=== PATIENT | male | born 1980 | race Caucasian/White ===

== ENCOUNTER 2018-02-21 13:26 | Inpatient (IN) | payer BC, OTHER ==
[~2018-02-21] VITALS: Ht 175.3 cm; Wt 81.6 kg
[2018-02-21] MEDS ORDERED: AMLO10TA4 PO (18:04)
[2018-02-21] MEDS ORDERED: CLON1TAB PO (18:04)
[2018-02-21] MEDS ORDERED: LISI40TA4 PO (18:04)
[2018-02-21] MEDS ORDERED: ARIP5TAB10 PO (18:04)
[2018-02-21] MEDS ORDERED: GABA800T2 PO (18:04)
[2018-02-21] MEDS ORDERED: THIA100T74 PO (18:04)
[2018-02-21] MEDS ORDERED: FOLI1TAB16 PO (18:04)
[2018-02-21] MEDS ORDERED: INSU200I SQ (18:04)
[2018-02-21] MEDS ORDERED: PANT40TA2 PO (18:04)
[2018-02-21] MEDS ORDERED: DESV50TA PO (18:04)
[2018-02-21 18:10] VITALS: BP 145/89
--- NOTE | 2018-02-21 18:10 | NUR ---
Pre-admission Pre-admission assessment performed in the intake department of [facility]. Pt is A&O and ambulatory with a steady gait. He is mildly intoxicated and answers questions appropriately with slurred speech. He has slight difficulty forming sentences and is observed with facial flushing. Vital signs: B/P 145/89, HR 116, RR 18, O2 sat 93%, T 98.0, pain 0/10. Pt reports that he has been drinking vodka 375-750mL day for two weeks and intermittently prior to that. His last drink was 375mL today. Pt is stable and [facility].
--- NOTE | 2018-02-21 19:28 | NUR ---
ADMISSION NOTE Pt is a 37 y/o male who is being admitted for medically supervised withdrawal from ETOH and Benzodiazepines. Pt is mildly intoxicated and is currently beginning to experience withdrawal. Pt appears flushed and unshaven. Pt has an anxious mood and is restless. He is oriented to person, place, time, and purpose. Pts speech is slow and pressured, and he has avoidant eye contact. Pt states that withdrawal from these substances has typically included sweats, body aches, tremors, anxiety, agitation, and insomnia. Pt states the last time I went through withdrawals I became very depressed and withdrawn. Pt denies any withdrawal induced delirium, but states he once had a seizure in 2015 from withdrawing from ETOH. Pt states current substance use as follows: 1. Vodka: 375-750ml daily for the past 2 weeks. Pts last use was 400ml on 02/21/18 at 1200. Pt first began using when he was 16 y/o. 2. Klonopin: 1mg daily as prescribed by Psychiatrist for the past 2 months. Pts last use was on the night of 02/20/18. Pt first began taking Klonopin 2 months ago. Pt states that he seeking treatment today because his drinking has negatively affected several areas of his life. He states that since he started drinking it has caused his depression to become increasingly more severe, It has interfered with treatment and my ability to overcome it. He also states that it has caused him problems at work, I recently have had attendance issues at work and had to meet with HR quite a few times. His biggest reason for seeking treatment today is his girlfriend. My girlfriend told me that she would not see me again until I was sober. She is not an addict, but she stopped drinking completely in support of me. I love her and want to be better for her. Pt states that he has issues arising from his childhood that he trying to deal with. I am trying to get help to deal with my childhood, but alcohol has gotten in the way of that and any progress I make. Pt states that he is ready to totally focus on recover. I just want to clean up my past and get back on track. He would like to continue residential treatment after detox. Pt states he has a sponsor and used to go to AA meetings, but he is willing to go now. He is also willing to try other types of recovery groups. Pt states that his family is also a good support system for him. Pts V/S are: T:98.0, P:116, RR:18, SPO2:94%, and BP:145/89. Pt denies any pain. Pulse is strong and regular, but tachy. Respirations are unlabored and even. Skin is intact. Pt follows a carb controlled diet at home. Pt has NKA/NKDA. He smokes about 20 cigarettes per day. Pt cant recall the name of his PCP. His psychiatrists are Dr. De Anda and Cyril Diamond. His psychotherapist is Magalis Ortega. Pt has a past medical h/o Diabetes type 2 and is currently taking Lantis and Humalog. Pt also has HTN for which he takes Lisinopril and Norvasc. Pt has a mental health h/o depression and anxiety, and takes Pristiq, Abilify, Gabapentine, and Klonopin. Pt educated on plan of care including detox, group and individual therapy, and discharge planning. Pt was encouraged to be open and honest to keep open the lines of communication. He was also given support for his choice in recovery.
[2018-02-21 19:35] LABS: *AMPHETAMINE, URINE NEGATIVE (NEGATIVE); *BARBITURATE, URINE NEGATIVE (NEGATIVE); *CANNABINOID, URINE NEGATIVE (NEGATIVE); *COCCAINE, URINE NEGATIVE (NEGATIVE); *OPIATE, URINE NEGATIVE (NEGATIVE); *PHENCYCLIDINE SCREEN,URINE NEGATIVE (NEGATIVE)
[2018-02-21 20:09] VITALS: BP 147/99
[2018-02-21] MEDS ORDERED: LOPERAMIDE HCL 2 MG CAPSULE PO PRN ×2 (21:00)
[2018-02-21] MEDS ORDERED: DIAZEPAM 5 MG TABLET PO PRN (21:00)
[2018-02-21] MEDS ORDERED: MAG HYDROX/AL HYDROX/SIMETH 30 ML LIQUID UDC PO PRN (21:00)
[2018-02-21] MEDS ORDERED: LORAZEPAM 2 MG/1 ML VIAL IM PRN (21:00)
[2018-02-21] MEDS ORDERED: ONDANSETRON ODT 4 MG TAB.RAPDIS SL PRN (21:00)
[2018-02-21] MEDS ORDERED: MAGNESIUM HYDROXIDE 30 ML LIQUID UDC PO PRN (21:00)
[2018-02-21] MEDS ORDERED: HYDROXYZINE PAMOATE 25 MG CAPSULE PO PRN (21:00)
[2018-02-21] MEDS ORDERED: DIAZEPAM 10 MG TABLET PO PRN (21:00)
[2018-02-21] MEDS ORDERED: IBUPROFEN 600 MG TABLET PO PRN (21:00)
[2018-02-21] MEDS ORDERED: INSULIN GLARGINE,HUM 300 UNITS/3 ML CARTRIDGE SQ SCH (21:00)
[2018-02-21] MEDS ORDERED: ONDANSETRON 4 MG/2 ML VIAL IM PRN (21:00)
[2018-02-21] MEDS ORDERED: THIAMINE HCL 200 MG/2 ML VIAL IM ONE (21:20)
[2018-02-21] MEDS ORDERED: DEXTROSE 50% 50 ML DISP.SYRIN IV PRN (21:30)
[2018-02-21 21:43] LABS: BASOPHILS # (AUTO) 0.1 K/uL (0.0-8.0); BASOPHILS % (AUTO) 0.6 % (0.0-2.0); EOSINOPHILS % (AUTO) 0.5 % (0.0-7.0); HEMATOCRIT 49.3 % (36.7-47.1); HEMOGLOBIN 17.3 g/dL (12.5-16.3); LYMPHOCYTES # (AUTO) 2.7 K/uL (20.0-40.0); LYMPHOCYTES % (AUTO) 31.8 % (20.5-51.5); MEAN CORPUSCULAR HEMOGLOBIN 33.2 uug (23.8-33.4); MEAN CORPUSCULAR HGB CONC 35 g/dL (32.5-36.3); MEAN CORPUSCULAR VOLUME 94.6 fL (73.0-96.2); MONOCYTES # (AUTO) 0.5 K/uL (2.0-10.0); NEUTROPHILS # (AUTO) 5.2 K/uL (1.8-8.9); NEUTROPHILS % (AUTO) 61.1 % (38.5-71.5); PLATELET COUNT (AUTO) 160 K/uL (152-348); RED BLOOD CELL COUNT(AUTO) 5.22 MIL/uL (4.06-5.63); WHITE BLOOD COUNT (AUTO) 8.6 K/uL (3.6-10.2)
[2018-02-21] MEDS: BLOOD SUGAR DIAGNOSTIC 1 EACH STRIP VI SCH (21:58)
--- NOTE | 2018-02-21 22:02 | NUR ---
CIWA ASSESSMENT CIWA 16. Pt is presenting w/ anxiety, flushed skin, tremors, and agitation. V/S: T:98.7. P:120, RR:16, SPO2:95, BP:147/99.
[2018-02-21] MEDS ORDERED: INSULIN GLARGINE,HUM 300 UNITS/3 ML CARTRIDGE SQ ONE (22:08)
[2018-02-21] MEDS ORDERED: INSULIN REGULAR, HUMAN 300 UNIT/3 ML VIAL ONE (22:08)
[2018-02-21 22:15] LABS: THYROID STIMULATING HORMONE 1.461 mIU/mL (0.358-3.740)
[2018-02-21] MEDS: diphenhydrAMINE 50 MG CAPSULE PO PRN (22:16)
[2018-02-21] MEDS: DIAZEPAM 10 MG TABLET PO PRN (22:16)
[2018-02-21] MEDS: CLONIDINE HCL 0.1 MG TABLET PO PRN (22:16)
--- NOTE | 2018-02-21 22:16 | NUR ---
PRN VALIUM, CLONIDINE, AND BENADRYL ADMINISTRATION Valium 20mg, Clonidine 0.1mg, and Benadryl 50mg given for CIWA 16, anxiety, and sleep. Will reassess pt in 1 hr.
[2018-02-21 22:18] LABS: BILIRUBIN,TOTAL 0.9 mg/dL (0.2-1.0); CREATININE 0.7 mg/dL (0.6-1.3); MAGNESIUM 1.7 mg/dL (1.8-2.4); TOTAL PROTEIN, SERUM 8.2 g/dL (6.4-8.2)
[2018-02-21] MEDS: INSULIN REGULAR, HUMAN 300 UNIT/3 ML VIAL SQ PRN (22:24)
--- NOTE | 2018-02-21 23:16 | NUR ---
PRN VALIUM, BENADRYL, AND CLONIDINE REASSESSMENT Pt is in bed w/ his eyes closed. Pt's respirations are unlabored and even.
--- NOTE | 2018-02-22 00:09 | NUR ---
CIWA DEFERRED Pt is in bed w/ his eyes closed. Pt's respirations are unlabored and even.
--- NOTE | 2018-02-22 04:10 | NUR ---
CIWA DEFERRED. V/S REFUSED Pt is in bed w/ his eyes clsoed. Pt's respirations are unlabored and even.
--- NOTE | 2018-02-22 04:30 | NUR ---
CIWA ASSESSMENT CIWA 16. Pt presenting w/ anxiety, agitation, tremors, and flsuhing. V/S: T:97.6, P:101, RR:16, SPO2:97, BP:138/89.
[2018-02-22] MEDS: DIAZEPAM 10 MG TABLET PO PRN (04:34)
--- NOTE | 2018-02-22 04:34 | NUR ---
PRN VALIUM ADMINISTRATION Valium 20mg given for CIWA 16. Will reassess pt in 1 hr.
--- NOTE | 2018-02-22 07:11 | NUR ---
END OF SHIFT NOTE Endorsed pt to oncoming nurse. Pt is a 37 y/o male A/O to person, place, time, and purpose. Pt was admitted for medically supervised withdrawal from ETOH and Benzodiazepines. Pt has a medcial h/o DM II and HTN, and mental health h/o Depression and Anxiety. Pt presented w/ anxiety, agitation, sweats, flushing, and tremors. Pt denies any S/I or H/I. PRN Valium 20mg x2, Clonidine 0.1mg, and Benadryl 50mg were given and noted effective. Pts fluid intake was 1355ml and he slept for 4hrs. Last CIWA 16 @ 0430. Call light is within reach.
--- NOTE | 2018-02-22 07:15 | NUR ---
Star of Shift Note Pt. is a 37 y/o male admitted for the medically managed withdrawal from ETOH and Benzodiazepines. Pt. was placed on a 4 day Valium taper to which is set to begin today to help manage his withdrawal symptoms. Pt. has a medical history of DM and HTN. Endorse from previous shift pt. presented with anxiety, flushed facial skin, agitation, diaphoresis, and tremors. Pt. given PRN clonidine, valium, and Benadryl to help manage withdrawal symptoms. Received pt. in room. Pt. laying in bed with eyes closed, no signs of distress noted. Safety measures in place. Will continue to monitor pt.s behavior for safety
[2018-02-22 08:00] VITALS: BP 132/84
--- NOTE | 2018-02-22 08:00 | NUR ---
CIWA Assessment CIWA of 12 at this time. Pt. in room presenting with anxiety, restlessness, diaphoresis, flushed facial skin, fine hand tremors and agitation. Pt. educated on medication regiment for the day. Will give medications as ordered. Will continue to monitor pt.'s behavior for safety.
[2018-02-22] MEDS: BLOOD SUGAR DIAGNOSTIC 1 EACH STRIP VI SCH ×4 (08:11→20:56)
[2018-02-22] MEDS: CLONIDINE HCL 0.1 MG TABLET PO PRN (08:18)
[2018-02-22] MEDS: FOLIC ACID 1 MG TABLET PO SCH (08:18)
[2018-02-22] MEDS: MULTIVITAMINS,THERAPEUTIC TABLET PO SCH (08:18)
[2018-02-22] MEDS: DIAZEPAM 10 MG TABLET PO SCH ×3 (08:18→20:49)
[2018-02-22] MEDS: THIAMINE HCL 100 MG TABLET PO SCH (08:18)
--- NOTE | 2018-02-22 08:18 | NUR ---
PRN Medication Pt. in room complaining of increased anxiety at this time. Pt. presents with a worried expression, and flushed facial skin. PRN Clonidine, and Vistaril given at this time to help manage withdrawal symptoms. Will continue to monitor pt.'s behavior for safety and medication effectiveness.
[2018-02-22] MEDS ORDERED: 4 DAY TAPER VALIUM-SERENITY PROTOCOL PO PRN (09:00)
[2018-02-22] MEDS ORDERED: TUBERCULIN,PURIF.PROT.DERIV. 5 TU/0.1 ML TEST ID ONE (09:00)
--- NOTE | 2018-02-22 09:00 | NUR ---
PRN Re-Assessment Pt. laying in bed watching television. Pt. reports a decrease in anxiety and states "I was able to take a little nap I feel a little better thank you." Medication effective. Will continue to monitor pt.'s behavior for safety.
--- NOTE | 2018-02-22 09:43 | NUR ---
Therapist prompted client to attend group therapy.
[2018-02-22] MEDS ORDERED: POTASSIUM CHLORIDE 20 MEQ TAB.PRT.SR PO ONE (11:00)
[2018-02-22] MEDS ORDERED: MAGNESIUM OXIDE 400 MG TABLET PO ONE (11:00)
[2018-02-22 12:00] VITALS: BP 144/90
--- NOTE | 2018-02-22 12:00 | NUR ---
CIWA Assessment CIWA of 12 at this time. Pt. medication compliant. Will continue to give medications as ordered. Will continue to monitor for safety.
[2018-02-22] MEDS: INSULIN REGULAR, HUMAN 300 UNIT/3 ML VIAL SQ PRN ×3 (12:34→21:00)
[2018-02-22] MEDS ORDERED: Medication Not On Formulary EA (Lisinopril 40 MG) PO SCH (13:45)
--- NOTE | 2018-02-22 14:40 | NUR ---
Therapist prompted client to attend group therapy sessions and client agreed to do so.
[2018-02-22] MEDS: LISINOPRIL 20 MG TABLET PO SCH (15:15)
[2018-02-22] MEDS: AMLODIPINE 10 MG TABLET PO SCH (15:15)
[2018-02-22] MEDS: GABAPENTIN 400 MG CAPSULE PO SCH ×2 (15:15→17:30)
[2018-02-22 16:00] VITALS: BP 132/93
--- NOTE | 2018-02-22 16:00 | NUR ---
CIWA Assessment CIWA of 12 at this time. Pt. medication compliant. Will continue to give medications as ordered. Will continue to monitor for safety.
--- NOTE | 2018-02-22 19:28 | NUR ---
End of Shift note Pt. is a 37 y/o male admitted for the medically managed withdrawal from ETOH and Benzodiazepines. Pt. was placed on a 4 day Valium taper to which is set to begin today to help manage his withdrawal symptoms. Throughout shift pt. presented with anxiety, flushed facial skin, agitation, diaphoresis, and tremors. Pt. given PRN clonidine, and vistaril to help manage withdrawal symptoms. Safety measures in place. Will endorse pt.'s care to oncoming shift.
--- NOTE | 2018-02-22 19:29 | NUR ---
Start of shift note Received report from day shift nurse. Pt is a 37 yo male, A+Ox4, presenting to [facility] for medically supervised ETOH/Benzo withdrawal. Pt noted with flushed face, restlessness, anxiety, and agitation. Pt has HX of DMII, HTN, Depression, and anxiety which will be monitored during shift. Pt is on 4 day Valium taper, tolerated well. Respirations even and unlabored. Will continue to monitor.
[2018-02-22 20:10] VITALS: BP 146/96
--- NOTE | 2018-02-22 20:10 | NUR ---
CIWA Assessment CIWA: 10. Pt noted with fine tremors, sweat on brow, anxiety, and agitation. Respirations even and unlabored. Will continue to monitor.
[2018-02-22] MEDS: INSULIN GLARGINE,HUM 300 UNITS/3 ML CARTRIDGE SQ SCH (20:59)
[2018-02-22] MEDS ORDERED: TRAZODONE 50 MG TABLET PO ONE (22:30)
--- NOTE | 2018-02-22 23:58 | NUR ---
One time Trazodone Pt c/o inability to sleep. MD provided on time Trazodone dose of 50mg. Medication given and tolerated well. Will reassess within 1 HR. Will continue to monitor.
[2018-02-23 00:50] VITALS: BP 138/87
--- NOTE | 2018-02-23 00:50 | NUR ---
CIWA Assessment CIWA: 9. Pt noted with fine tremors, sweat on brow, anxiety and agitation. Respirations even and unlabored. Will continue to monitor.
[2018-02-23] MEDS: diphenhydrAMINE 50 MG CAPSULE PO PRN (00:52)
--- NOTE | 2018-02-23 00:52 | NUR ---
PRN Benadryl administration and PRN Trazodone Reassessment Pt report PRN Trazodone as ineffective. Pt requested for PRN Benadryl for inability to sleep. Medication given and tolerated well. Will reassess within 1 HR. Will continue to monitor.
--- NOTE | 2018-02-23 01:50 | NUR ---
PRN Benadryl Reassessment Medication effective. Pt is resting well in bed. No s/s of ASE noted at this time. Respirations even and unlabored. Will continue to monitor.
--- NOTE | 2018-02-23 04:48 | NUR ---
V/S refused and CIWA Assessment deferred for sleep. Respirations even and unlabored. Will continue to monitor.
--- NOTE | 2018-02-23 06:50 | NUR ---
End of shift note Pt was continuously noted with restlessness, anxiety, and agitation. Pt remained in room for majority of shift except to go smoke on smoking patio, to get food from kitchen, and to interact with other patients in recreational room. Pt remains cooperative and compliant with all aspects of treatment. Pt was given One time dose of Trazodone @2359 and PRN Benadryl @0052. Pt remains on 4 day Valium taper, tolerated well. Pt slept for a total of 6 HRS. Last CIWA: 9 @0050. Respirations even and unlabored. Will endorse to day shift nurse.
--- NOTE | 2018-02-23 07:30 | NUR ---
START OF SHIFT pt 37 y/o male admitted for medically supervised withdrawal of etoh. Pt received in room awake watching television. Pt alert and oriented to name, place, and time. Perrla. Respirations even and unlabored. Appears disheveled. Clothes scattered throughout the room. Encouraged to maintain hygiene. Anxious and restless. Pacing. Pressured speech. Complaints of generalized discomfort. It was reported that pt slept for 6 hours last night. Last ciwa=9 @0000. Pt is on a 4 day valium taper and is on day 2. Bed on lowest position with side rails x2 up for safety. Call light within reach.
[2018-02-23] MEDS: BLOOD SUGAR DIAGNOSTIC 1 EACH STRIP VI SCH ×4 (07:37→21:16)
[2018-02-23 08:00] VITALS: BP 149/105
--- NOTE | 2018-02-23 08:00 | NUR ---
CIWA ASSESSMENT ciwa=10. Anxious and restless. Pressured speech noted. Bilateral hand tremors noted. Easily irritable. Complaints of generalized discomfort.
[2018-02-23] MEDS: THIAMINE HCL 100 MG TABLET PO SCH (08:26)
[2018-02-23] MEDS: DIAZEPAM 5 MG TABLET PO SCH ×4 (08:26→20:35)
[2018-02-23] MEDS: LISINOPRIL 20 MG TABLET PO SCH (08:27)
[2018-02-23] MEDS: AMLODIPINE 10 MG TABLET PO SCH (08:28)
[2018-02-23] MEDS: MULTIVITAMINS,THERAPEUTIC TABLET PO SCH (08:28)
[2018-02-23] MEDS: GABAPENTIN 400 MG CAPSULE PO SCH ×3 (08:28→16:38)
[2018-02-23] MEDS: FOLIC ACID 1 MG TABLET PO SCH (08:28)
[2018-02-23 12:00] VITALS: BP 139/105
--- NOTE | 2018-02-23 12:00 | NUR ---
CIWA ASSESSMENT ciwa=10. Bilateral hand tremors noted. Anxious and restless. Fidgety. Pacing. Flushed face. Pressured speech. Complaints of generalized discomfort.
[2018-02-23] MEDS: CLONIDINE HCL 0.1 MG TABLET PO PRN (12:12)
--- NOTE | 2018-02-23 12:12 | NUR ---
PRN CATAPRES DU=[id number]/105. Catapres po prn per MD order given and tolerated well.
[2018-02-23] MEDS: INSULIN REGULAR, HUMAN 300 UNIT/3 ML VIAL SQ PRN ×3 (12:16→21:25)
--- NOTE | 2018-02-23 13:12 | NUR ---
PRN CATAPRES EVAL me=[id number]/80.
[2018-02-23] MEDS ORDERED: Medication Not On Formulary EA (Desvenlafaxine Succinate (Pristiq) 50 MG) PO SCH (14:15)
--- NOTE | 2018-02-23 14:18 | NUR ---
Therapist prompted client to attend all group therapy sessions.
[2018-02-23 14:40] LABS: HEPATITIS B SURFACE AG Negative (Negative)
[2018-02-23] MEDS: ARIPIPRAZOLE 5 MG TABLET PO SCH (15:25)
[2018-02-23 16:00] VITALS: BP 143/98
--- NOTE | 2018-02-23 16:00 | NUR ---
CIWA ASSESSMENT ciwa=10. Anxious and restless. Fidgety. Pacing. Pressured speech noted. Bilateral hand tremors noted. Easily irritable. Complaints of generalized discomfort.
[2018-02-23 16:03] LABS: CREATININE 0.9 mg/dL (0.6-1.3); MAGNESIUM 1.7 mg/dL (1.8-2.4); POTASSIUM 4.8 mmol/L (3.5-5.1)
[2018-02-23 16:29] LABS: BILIRUBIN,TOTAL 1.7 mg/dL (0.2-1.0); TOTAL PROTEIN, SERUM 7.6 g/dL (6.4-8.2)
[2018-02-23] MEDS: [UNRECOGNIZED DRUG - OTHER] PO SCH (18:07)
--- NOTE | 2018-02-23 18:42 | NUR ---
END OF SHIFT Pt 37 y/o male admitted for medically supervised withdrawal of etoh. Pt alert and oriented to name, place, and time. Perrla. Respirations even and unlabored. Appears disheveled and unkempt. Food wrappings scattered throughout the room. Encouraged to maintain hygiene. Anxious and restless. Fidgety. Pressured speech. Complaints of generalized discomfort. Isolative with minimal peer interaction. Attended group activity. Pt is on a 4 day valium taper and is on day 2. Last ciwa=10 @1600. Bed on lowest position with side rails x2 up for safety. Call light within reach.
--- NOTE | 2018-02-23 19:11 | NUR ---
Start of shift note Received report from day shift nurse. Pt is a 37 yo male, A+Ox4, presenting to [facility] for medically supervised ETOH/Benzo withdrawal. Pt noted with anxiety, restlessness, and agitation. Pt has HX of DMII, HTN, anxiety, and depression which will be monitored during shift. Pt is on 4 day Valium taper, tolerated well. Respirations even and unlabored. Will continue to monitor.
[2018-02-23 20:10] VITALS: BP 122/95
--- NOTE | 2018-02-23 20:10 | NUR ---
CIWA Assessment CIWA: 10. Pt noted with fine tremors, sweat on brow, anxiety, and agitation. Respirations even and unlabored. Will continue to monitor.
[2018-02-23] MEDS: INSULIN GLARGINE,HUM 300 UNITS/3 ML CARTRIDGE SQ SCH (21:24)
[2018-02-23] MEDS: TRAZODONE 100 MG TABLET PO SCH (23:08)
--- NOTE | 2018-02-24 00:29 | NUR ---
V/S refused and CIWA Assessment deferred for sleep. Respirations even and unlabored. Will continue to monitor.
--- NOTE | 2018-02-24 04:46 | NUR ---
V/S refused and CIWA Assessment deferred for sleep. Respirations even and unlabored. Will continue to monitor.
--- NOTE | 2018-02-24 07:00 | NUR ---
End of shift note Pt was continuously noted with restlessness, anxiety and agitation. Pt remained in room for majority of shift except to go smoke on smoking patio, to get food from kitchen, and to interact with other patients in recreational room. Pt remained cooperative and compliant with all aspects of treatment. Pt was not given any PRN medications during shift. Pt remains on 4 day Valium taper, tolerated well. Pt slept for a total of 8 HRS. Last CIWA: 10 @2009. Respirations even and unlabored. Will endorse to day shift nurse.
[2018-02-24 08:00] VITALS: BP 152/103
--- NOTE | 2018-02-24 08:00 | NUR ---
START OF SHIFT Pt 37 y/o male admitted for medically supervised withdrawal of etoh. Pt received in room on bed with eyes closed resting. Pt alert and oriented to name, place, and time. Perrla. Respirations even and unlabored. Appears disheveled and unkempt. Clothes scattered throughout the room. Encouraged to maintain hygiene. Anxious and restless. Pressured speech. Fidgety. Face is slightly flushed. Bilateral hand tremors. Complaints of generalized discomfort. ciwa=10 @ 0800. It was reported that pt slept for 8 hours last night. Last ciwa=10 @1999 reported. Pt is on a 4 day valium taper and is on day 3. Bed on lowest position with side rails x2 up for safety. Call light within reach.
[2018-02-24] MEDS: BLOOD SUGAR DIAGNOSTIC 1 EACH STRIP VI SCH ×4 (08:08→20:55)
[2018-02-24] MEDS: INSULIN REGULAR, HUMAN 300 UNIT/3 ML VIAL SQ PRN ×4 (08:12→21:05)
[2018-02-24] MEDS: [UNRECOGNIZED DRUG - OTHER] PO SCH (08:51)
[2018-02-24] MEDS: AMLODIPINE 10 MG TABLET PO SCH (08:52)
[2018-02-24] MEDS: GABAPENTIN 400 MG CAPSULE PO SCH ×3 (08:52→16:42)
[2018-02-24] MEDS: LISINOPRIL 20 MG TABLET PO SCH (08:52)
[2018-02-24] MEDS: FOLIC ACID 1 MG TABLET PO SCH (08:53)
[2018-02-24] MEDS: ARIPIPRAZOLE 5 MG TABLET PO SCH (08:53)
[2018-02-24] MEDS: THIAMINE HCL 100 MG TABLET PO SCH (08:53)
[2018-02-24] MEDS: MULTIVITAMINS,THERAPEUTIC TABLET PO SCH (08:53)
[2018-02-24] MEDS: DIAZEPAM 5 MG TABLET PO SCH ×3 (08:53→20:54)
[2018-02-24 12:00] VITALS: BP 144/95
--- NOTE | 2018-02-24 12:00 | NUR ---
CIWA ASSESSMENT ciwa=10. Bilateral hand tremors. Intermittent perspiration. Complaints of generalized discomfort. Anxious and restless. Pacing.
[2018-02-24] MEDS: CLONIDINE HCL 0.1 MG TABLET PO PRN (12:10)
--- NOTE | 2018-02-24 12:20 | NUR ---
PRN CATAPRES Pt anxious and restless. Catapres po prn per MD order given and tolerated well.
--- NOTE | 2018-02-24 13:20 | NUR ---
PRN CATAPRES EVAL Pt states medication effective.
[2018-02-24 16:00] VITALS: BP 134/91
--- NOTE | 2018-02-24 16:00 | NUR ---
CIWA ASSESSMENT ciwa=10. anxious and restless. Pressured speech noted. Bilateral hand tremors noted. Irritable. Pacing. Intermittent perspiration.
--- NOTE | 2018-02-24 18:49 | NUR ---
END OF SHIFT Pt 37 y/o male admitted for medically supervised withdrawal of etoh. Pt alert and oriented to name, place, and time. Perrla. Respirations even and unlabored. Appears disheveled and unkempt. Empty drink bottles and clothes scattered throughout the room. Encouraged to maintain hygiene. Anxious and restless. Fidgety. Pressured speech. Pacing. Bilateral hand tremors. Complaints of generalized discomfort. Minimal peer interaction. Attended group activity. Pt is on a 4 day valium taper and is on day 3. Last ciwa=10 @1600. Bed on lowest position with side rails x2 up for safety. Call light within reach.
--- NOTE | 2018-02-24 19:11 | NUR ---
Start of shift note Received report from day shift nurse. Pt is a 37 yo male, A+Ox4, presenting to [facility] for medically supervised ETOH/Benzo withdrawal. Pt noted with restlessness, anxiety, and agitation. Pt has HX of DMII, HTN, Depression, seizure and anxiety which will be monitored during shift. Pt is on 4 day Valium taper, tolerated well. Respirations even and unlabored. Will continue to monitor.
[2018-02-24 20:10] VITALS: BP 136/88
--- NOTE | 2018-02-24 20:10 | NUR ---
CIWA Assessment CIWA: 9. Pt noted with fine tremors, sweat on brow, anxiety, and agitation. Respirations even and unlabored. Will continue to monitor.
[2018-02-24] MEDS: INSULIN GLARGINE,HUM 300 UNITS/3 ML CARTRIDGE SQ SCH (21:04)
[2018-02-24] MEDS: TRAZODONE 100 MG TABLET PO SCH (23:26)
--- NOTE | 2018-02-25 | NUR ---
CIWA assessment Patient reports anxiety, restlessness, face flushed and hot and cold sweats. CIWA 10 Addendum: 02/26/18 at 0339 by CATALINO FOSTER LVN Error : date and time charting
--- NOTE | 2018-02-25 00:55 | NUR ---
V/S refused and CIWA assessment deferred for sleep. Respirations even and unlabored. Will continue to monitor.
--- NOTE | 2018-02-25 04:40 | NUR ---
V/S refused and CIWA assessment deferred for sleep. Respirations even and unlabored. Will continue to monitor.
--- NOTE | 2018-02-25 07:00 | NUR ---
End of shift note Pt was continuously noted with restlessness, anxiety, and agitation. Pt remained in room for majority of shift except to get food from kitchen, to go smoke on smoking patio, and to interact with other patients in recreational room. Pt remained cooperative and compliant with all aspects of treatment. Pt was not given any PRN medications during shift. Pt remains on 4 day Valium taper, tolerated well. Pt slept for a total of 6 HRS. Last CIWA: 9 @2009. Respirations even and unlabored. Will endorse to day shift nurse.
[2018-02-25] MEDS: BLOOD SUGAR DIAGNOSTIC 1 EACH STRIP VI SCH ×4 (07:41→22:27)
--- NOTE | 2018-02-25 07:46 | NUR ---
Start of shift note; Received report from night nurse. Patient is a 37 year old male admitted on 02/21/18 for ETOH/ Benzodiazepine withdrawal. Patient was placed on a 4 day Valium taper, tolerating well. Patient is diagnosed with DM type 2, current Blood sugar is 98 mg/dl AC accu check, no insulin needed at this time. Patient is AOX4, presented with anxiety, flushed face noted, complaining of generalized body aches, muscle aches, intermittent sweats noted. Patient slept for 8 hours. Patient's last CIWA score is 9 per endorsement. All safety measures secured. Will continue to monitor patient.
[2018-02-25 08:00] VITALS: BP 125/89
--- NOTE | 2018-02-25 08:00 | NUR ---
CIWA Assessment, Blood sugar check; Patient appears older than age stated, flushed face noted. Patient's current CIWA score is 11 manifested by poor eye contact, anxious, easily overwhelmed,guarded, patient is complaining of muscle aches, generalized discomfort, fatigue. Patient AC Blood sugar is 98mg/dl, no insulin needed. Will continue to monitor patient.
[2018-02-25] MEDS: LISINOPRIL 20 MG TABLET PO SCH (09:00)
[2018-02-25] MEDS: [UNRECOGNIZED DRUG - OTHER] PO SCH (09:00)
[2018-02-25] MEDS: ARIPIPRAZOLE 5 MG TABLET PO SCH (09:00)
[2018-02-25] MEDS: THIAMINE HCL 100 MG TABLET PO SCH (09:00)
[2018-02-25] MEDS: FOLIC ACID 1 MG TABLET PO SCH (09:00)
[2018-02-25] MEDS: GABAPENTIN 400 MG CAPSULE PO SCH ×3 (09:00→16:48)
[2018-02-25] MEDS: MULTIVITAMINS,THERAPEUTIC TABLET PO SCH (09:00)
[2018-02-25] MEDS: AMLODIPINE 10 MG TABLET PO SCH (09:00)
[2018-02-25] MEDS: DIAZEPAM 5 MG TABLET PO SCH ×2 (09:00→22:24)
[2018-02-25 12:00] VITALS: BP 126/88
--- NOTE | 2018-02-25 12:00 | NUR ---
CIWA Assessment, Blood sugar check; Patient appears older than age stated, flushed face noted. Patient's current CIWA score continues to be 11 manifested by poor eye contact, anxious, easily overwhelmed,guarded, patient is complaining of muscle aches, generalized discomfort, fatigue. Patient AC Blood sugar is 215mg/dl, 4 units of Insulin given per protocol. Will continue to monitor patient.
[2018-02-25] MEDS: INSULIN REGULAR, HUMAN 300 UNIT/3 ML VIAL SQ PRN ×3 (12:08→22:25)
[2018-02-25 16:00] VITALS: BP 120/81
--- NOTE | 2018-02-25 17:00 | NUR ---
CIWA Assessment, Blood sugar check; Patient appears older than age stated, flushed face noted. Patient's current CIWA score is 10 manifested by poor eye contact, anxious, easily overwhelmed,guarded, patient is complaining of muscle aches, generalized discomfort, fatigue. Patient AC Blood sugar is 217 mg/dl, 4 units of Insulin given per protocol. Will continue to monitor patient.
--- NOTE | 2018-02-25 18:19 | NUR ---
End of shift note; Patient is AXO4, presented with anxiety, poor eye contact, easily overwhelmed,guarded, patient is complaining of muscle aches, generalized discomfort, fatigue. Patient remained compliant with treatment plan and medication regime. Patient participated in group activities and therapies. Patient's last CIWA score is 10 at 1600. Medications were effective in reducing withdrawal symptoms. PRN insulin given per sliding scale protocol. All safety measures secured. Met all needs.
--- NOTE | 2018-02-25 19:30 | NUR ---
Start of shift note Received report from day shift nurse. Patient is a 37 year old male admitted for ETOH and Benzodiazepine withdrawal. Patient is on 4th day of his 4 day Valium taper. Patient is diagnosed with DM type II. Last blood sugar was 217 and was given 4 units of regular insulin. Patient did not require PRN medication . Last CIWA 10. Patient alert and oriented x 4. Patient presents with flat affect, flushed face, anxious and restless. Safety measures in place. Call light within reach. Will continue to monitor.
[2018-02-25 20:00] VITALS: BP 135/93
--- NOTE | 2018-02-25 20:00 | NUR ---
CIWA assessment Patient reports anxiety, restlessness, face flushed and hot and cold sweats. CIWA 10
[2018-02-25] MEDS ORDERED: INSULIN GLARGINE,HUM 300 UNITS/3 ML CARTRIDGE SQ ONE (22:16)
[2018-02-25] MEDS: TRAZODONE 100 MG TABLET PO SCH (22:24)
[2018-02-25] MEDS: INSULIN GLARGINE,HUM 300 UNITS/3 ML CARTRIDGE SQ SCH (22:27)
[2018-02-26] VITALS: BP 128/86
--- NOTE | 2018-02-26 | NUR ---
CIWA deferred Patient lying in bed with eyes closed. Respiration even and unlabored. Will continue to monitor
[2018-02-26 04:00] VITALS: BP 130/78
--- NOTE | 2018-02-26 04:00 | NUR ---
CIWA deferred Patient lying in bed with eyes closed. Respiration even and unlabored. Will continue to monitor
--- NOTE | 2018-02-26 07:26 | NUR ---
End of shift note Patient slept 6 hours. Fluid intake 1,446 ml. Voided x 3 . No BM. Monitored patient throughout shift. Patient is diagnosed with DM type II. Last blood sugar was 336 and was given 8 units of regular insulin. Lantus given as ordered. Patient did not require PRN medication . Patient alert and oriented x 4. Patient presented with flat affect, flushed face, anxiety and restlessness. Scheduled medication and taper , tolerated well and no adverse reaction. Patient states that medication are effective in controlling his withdrawal symptoms. Encouraged fluids. Safety measures in place. Call light within reach. Will continue to monitor. Last CIWA 10
--- NOTE | 2018-02-26 07:35 | NUR ---
START OF SHIFT Endorse rcvd from ongoing nurse, client is in room, a/o x 4, he presents with anxious mood, flushed facial face, tremors, and restlessness. Last CIWA 10 @ 2200. Client completed 4 day Valium taper. Client is schedule for discharge tomorrow am to [facility] for continuity of treatment. PRN Insulin Regular 8 units, for blood sugar 336. Client slept 6 hrs. Bed in lowest/locked position. Client refused side rails x 2 up/padded, stating, "Yeah, I know the risk in case I have a seizure, but I don't want them up." Call light within reach. Will continue to monitor.
--- NOTE | 2018-02-26 08:00 | NUR ---
CIWA 7 Client is in room, he presents with anxious mood, agitation, flushed facial skin, and tremors felt. Non-pharmacological measures rendered. Will continue to monitor. Call light within reach.
[2018-02-26] MEDS: BLOOD SUGAR DIAGNOSTIC 1 EACH STRIP VI SCH ×4 (08:19→21:50)
[2018-02-26] MEDS: GABAPENTIN 400 MG CAPSULE PO SCH ×3 (08:22→17:08)
[2018-02-26] MEDS: INSULIN REGULAR, HUMAN 300 UNIT/3 ML VIAL SQ PRN ×4 (08:22→21:59)
[2018-02-26] MEDS: THIAMINE HCL 100 MG TABLET PO SCH (08:22)
[2018-02-26] MEDS: ARIPIPRAZOLE 5 MG TABLET PO SCH (08:22)
[2018-02-26] MEDS: [UNRECOGNIZED DRUG - OTHER] PO SCH (08:22)
[2018-02-26] MEDS: AMLODIPINE 10 MG TABLET PO SCH (08:22)
[2018-02-26] MEDS: LISINOPRIL 20 MG TABLET PO SCH (08:22)
[2018-02-26] MEDS: FOLIC ACID 1 MG TABLET PO SCH (08:22)
[2018-02-26] MEDS: MULTIVITAMINS,THERAPEUTIC TABLET PO SCH (08:22)
--- NOTE | 2018-02-26 08:24 | NUR ---
Blood sugar 231, covered with PRN insulin R 4 units. Client requires additional education on CCHO 60mf diet
[2018-02-26 08:37] VITALS: BP 138/93
[2018-02-26 08:44] LABS: BASOPHILS # (AUTO) 0.1 K/uL (0.0-8.0); BASOPHILS % (AUTO) 0.8 % (0.0-2.0); EOSINOPHILS # (AUTO) 0.1 K/uL (0.0-0.7); EOSINOPHILS % (AUTO) 1.7 % (0.0-7.0); HEMATOCRIT 46.6 % (36.7-47.1); HEMOGLOBIN 16.5 g/dL (12.5-16.3); LYMPHOCYTES # (AUTO) 2.1 K/uL (20.0-40.0); LYMPHOCYTES % (AUTO) 27.7 % (20.5-51.5); MEAN CORPUSCULAR HEMOGLOBIN 33.8 uug (23.8-33.4); MEAN CORPUSCULAR HGB CONC 36 g/dL (32.5-36.3); MEAN CORPUSCULAR VOLUME 95.3 fL (73.0-96.2); MONOCYTES # (AUTO) 0.7 K/uL (2.0-10.0); NEUTROPHILS # (AUTO) 4.5 K/uL (1.8-8.9); NEUTROPHILS % (AUTO) 60.8 % (38.5-71.5); PLATELET COUNT (AUTO) 133 K/uL (152-348); RED BLOOD CELL COUNT(AUTO) 4.89 MIL/uL (4.06-5.63); WHITE BLOOD COUNT (AUTO) 7.5 K/uL (3.6-10.2)
[2018-02-26 08:49] LABS: CREATININE 0.9 mg/dL (0.6-1.3); POTASSIUM 4.5 mmol/L (3.5-5.1)
[2018-02-26 12:00] VITALS: BP 128/91
--- NOTE | 2018-02-26 12:08 | NUR ---
Blood sugar 252, covered with PRN insulin R 6 units SQ to RLQ.
--- NOTE | 2018-02-26 12:11 | NUR ---
CIWA 7 Client is in room, he presents with anxious mood, agitation, flushed facial skin, and tremors felt. Gabapentin 800mg PO administered. Call light within reach.
[2018-02-26] MEDS ORDERED: Insulin Glargine,Hum SQ ×2 (12:25)
[2018-02-26] MEDS ORDERED: INSU100V28 (12:25)
[2018-02-26] MEDS ORDERED: AMLO10TA6 PO (12:25)
[2018-02-26 16:59] VITALS: BP 132/90
--- NOTE | 2018-02-26 17:06 | NUR ---
CIWA 7 Client is in room, he continues to present with anxious mood, agitation, flushed facial skin, and tremors felt. Gabapentin 800mg PO administered. Call light within reach.
--- NOTE | 2018-02-26 17:07 | NUR ---
Blood sugar 273, covered with PRN insulin R 6 units SQ.
--- NOTE | 2018-02-26 19:15 | NUR ---
END OF SHIFT Endorse client to incoming nurse, client is in room, a/o x 4, he continues to present with anxious mood, agitation, flushed facial skin, and tremors felt. Last CIWA 7 @ 1700. Client completed 4 day Valium taper. Client is schedule for discharge tomorrow am to [facility] for continuity of treatment. PRN Insulin Regular 8 units @ 1707, for blood sugar 336. 6 units for BS 252 @ 1208, and 4 units for BS 231 @ 0824. Client is compliant with group therapy. Adequate PO fluid intake 3192mL, void x 4, stool x 1. Consumes 75-100% of meals. Kavin light within reach. Client refused side rails x 2 up/padded.
--- NOTE | 2018-02-26 19:30 | NUR ---
Start of shift Patient is a 37 year old male admitted on 02/21/2018, patient is being discharged on 02/27/2018. Patient finished a 4 day Valium taper. Patients last CIWA was 7. Patient is on Fall and Seizure precautions, per endorsement patient refuses side rails to be placed up with padding. Patient received PRN Insulin coverage during day shift. Upon rounds patient was noted in room fresh out of the shower, safety measures were explain and he decline the rails to be put up. Patient is cooperative and room appears disheveled. Reviewed 2100 medications with patient and he verbalized understanding. Breathing is even and unlabored, no s/s of distress. Safety measures in place, bed locked in low position and call light within reach. Will continue to monitor.
[2018-02-26 20:00] VITALS: BP 140/98
--- NOTE | 2018-02-26 20:00 | NUR ---
CIWA Assessment Patient is presenting with the following s/s of withdrawal: mild sweats, anxiety, agitation and tremors. Patients CIWA is 6. Safety measures in place, will continue to monitor.
[2018-02-26] MEDS: INSULIN GLARGINE,HUM 300 UNITS/3 ML CARTRIDGE SQ SCH (21:53)
--- NOTE | 2018-02-26 21:59 | NUR ---
PRN Maalox Suspension and Humulin R Patient was experiencing heartburns and requested something to alleviate the discomfort. Patient also has a glucose of 231, per sliding scale 4 units of Humulin R insulin needed to be administered. Administered PRN Maalox Suspension and 4 units of Humulin R insulin in the right lower quadrant of the abdomen. Patient is breathing even and unlabored. Safety measures in place, will continue to monitor.
--- NOTE | 2018-02-26 22:59 | NUR ---
PRN Maalox Suspension and Humulin R Reassessment Patient is noted playing [employer] in the game room, patient is not experiencing any s/s of adverse reactions or hypoglycemia. Patient is breathing even and unlabored, will continue to monitor patient.
[2018-02-26] MEDS: TRAZODONE 100 MG TABLET PO SCH (23:40)
--- NOTE | 2018-02-26 23:40 | NUR ---
Trazodone late administration Patient decline medication at 2100 and he said he wanted to take it later because he was not going to sleep soon. Postpone medication administration at 2340, patient was in room resting in bed. Safety measures in place, will continue to monitor.
[2018-02-27] VITALS: BP 128/91
--- NOTE | 2018-02-27 | NUR ---
CIWA Assessment Patient is presenting with the following s/s of withdrawal: anxiety and agitation. Patients CIWA is 6. Safety measures in place, will continue to monitor.
[2018-02-27 04:00] VITALS: BP 118/82
--- NOTE | 2018-02-27 04:00 | NUR ---
CIWA Deferred Patient was noted in bed resting with eyes closed, breathing was even and unlabored. Per protocol CIWA is to be assessed while awake. Safety measures in place. Will continue to monitor.
--- NOTE | 2018-02-27 06:59 | NUR ---
End of shift Patient is a 37 year old male admitted on 02/21/2018, patient is being discharged today 02/27/2018. Patient finished a 4 day Valium taper. Patients last CIWA was 6. Patient is on Fall and Seizure precautions. Patient had PRN Maalox Suspension and 4 units Humulin R insulin per sliding scale, patient had a glucose of 231. Patient slept for 5 hours and had a total intake of 1,096ml. Patient voided x1 and had no bowel movements during this shift. Breathing is even and unlabored. Safety measures in place, bed locked in low position and call light within reach. Will endorse t day shift.
[2018-02-27] MEDS: BLOOD SUGAR DIAGNOSTIC 1 EACH STRIP VI SCH (07:17)
--- NOTE | 2018-02-27 07:20 | NUR ---
Accu Check Glucose 163 Patient was schedule for glucose reading at 0730. Performed accu check reading and the scanner was unable to scan the patient, tried to trouble shoot. Patients scan was override and his glucose was 163. Charge nurse was notified and lab. Will endorse to day to shift to cover per sliding scale of 3 units of Humulin R insulin.
[2018-02-27 08:00] VITALS: BP 125/92
--- NOTE | 2018-02-27 08:00 | NUR ---
START OF SHIFT NOTE Received report from night nurse, patient is 37 year old male admitted for ETOH/Benzo withdrawal and completed his 4 days Valium taper tolerated well. Per endorsement patient received PRN Maalox effective per night nurse, slept for 5 hours and last CIWA score was 6. Per endorsement patient refused side rails padded and go up. Patient set for discharge today. Received patient alert awake oriented x4 with labile facial expression, anxious, agitated, bilateral hand tremors. Patient is due for scheduled medications. All safety measures in place, Call light within reach. Will cont to monitor.
[2018-02-27] MEDS: ARIPIPRAZOLE 5 MG TABLET PO SCH (08:25)
[2018-02-27] MEDS: AMLODIPINE 10 MG TABLET PO SCH (08:25)
[2018-02-27] MEDS: THIAMINE HCL 100 MG TABLET PO SCH (08:25)
[2018-02-27] MEDS: FOLIC ACID 1 MG TABLET PO SCH (08:25)
[2018-02-27] MEDS: GABAPENTIN 400 MG CAPSULE PO SCH (08:25)
[2018-02-27] MEDS: MULTIVITAMINS,THERAPEUTIC TABLET PO SCH (08:25)
[2018-02-27 08:26] VITALS: BP 125/92
[2018-02-27] MEDS: LISINOPRIL 20 MG TABLET PO SCH (08:26)
[2018-02-27] MEDS: [UNRECOGNIZED DRUG - OTHER] PO SCH (08:26)
[2018-02-27] MEDS: INSULIN REGULAR, HUMAN 300 UNIT/3 ML VIAL SQ PRN (08:31)
--- NOTE | 2018-02-27 08:31 | NUR ---
INSULIN COVERAGE Morning blood sugar checked by night nurse was 163, Humulin R 3 units administered as ordered on left lower quadrant no s/s of bleeding noted. Will cont to monitor.
--- NOTE | 2018-02-27 09:43 | NUR ---
DISCHARGE NOTE Patient is alert awake oriented discharge from [facility] in stable condition. Vital signs WNL. Skin intact warm and dry to touch. Patient denies any SI/HI. All discharge paper work completed signed and dated. All belongings returned to the patient including his home medication and prescriptions. Patient discharge from [facility] to [facility] in stable condition.
== END 2018-02-27 09:43 | disposition other institution (70) | DRG 895 ==
LOC: SRC 17:26
PROVIDERS: ADMIT Family Medicine Addiction Medicine; ATTEND Family Medicine Addiction Medicine
PROC: HZ2ZZZZ Detoxification Services for Substance Abuse Treatment (ICD-10-PCS; principal; 2018-02-21)
PROC: HZ31ZZZ Individual Counseling for Substance Abuse Treatment, Behavioral (ICD-10-PCS; 2018-02-22)
PROC: HZ41ZZZ Group Counseling for Substance Abuse Treatment, Behavioral (ICD-10-PCS; 2018-02-22)
DX: F10.230 Alcohol dependence with withdrawal, uncomplicated (principal); F13.230 Sedative, hypnotic or anxiolytic dependence with withdrawal, uncomplicated; Y90.8 Blood alcohol level of 240 mg/100 ml or more; E11.65 Type 2 diabetes mellitus with hyperglycemia; Z79.4 Long term (current) use of insulin; F17.210 Nicotine dependence, cigarettes, uncomplicated; F41.1 Generalized anxiety disorder; F32.9 Major depressive disorder, single episode, unspecified; G47.00 Insomnia, unspecified; E86.0 Dehydration; I10 Essential (primary) hypertension; D69.6 Thrombocytopenia, unspecified
CPT/HCPCS: 36415; 70030-TC; 80307; 83690; 83735; 84443; 85025; 86592; 86705; 86803; 87340; 87806; A4663; G0480; J1815; J3411; Q0163